=== PATIENT | female | born 1955 | race Caucasian/White ===

== ENCOUNTER → 2017-11-28 | Outpatient (CLI) | payer OTHER ==
[~2017-11-28] MED LIST: ATORVASTATIN CA40 MG PO; CALCIUM + D SO1 EACH; CEPHALEXIN 500500 M3 PO; CORTISPORIN OTI10 M2 OTIC; DUONEB 2.5-0.5 M3 ML INH; ERYTHROMYCIN E3.5 G3 OPHTHALMIC; FLEXERIL PO; LIPITOR40 MG; MULTIVITAMINS1 EAC7; NEBULIZER MISCELL; NORCO 5-325 TA1 EACH PO; PAXIL20 MG PO; PAXIL40 MG; PREDNISONE50 MG PO; PROAIR HFA8.5 GM INH; TRICOR145 MG; ZPAK PO
[2017-11-28 09:57] LABS: ABSOLUTE BASOPHILS 0.1 thou/uL (0.0-0.2); ABSOLUTE EOSINOPHILS 0.1 thou/uL (0.0-0.7); ABSOLUTE LYMPHOCYTES 2.8 thou/uL (0.8-5.3); ABSOLUTE MONOCYTES 0.5 thou/uL (0.0-1.2); BASOPHILS 0.9 %; EOSINOPHILS 1.6 %; HEMOGLOBIN 13.8 gm/dL (12.0-15.0); LYMPHOCYTES 37.4 %; MCH 29.5 pg (26.0-34.0); MCHC 32.9 g/dL (28.0-37.0); MCV 89.7 fL (80.0-100.0); MONOCYTES 7.3 %; MPV 7.7 fl. (7.2-11.1); NUCLEATED RBCS 0 /100WBC; PLATELET COUNT* 522 thou/uL (150-400); POLYS 52.8 %; RBC 4.68 mil/uL (4.20-5.00); RDW-CV 13.3 % (10.5-14.5); WBC 7.5 thou/uL (4.0-11.0)
[2017-11-28 10:34] LABS: ALBUMIN 3.7 g/dL (3.4-5.0); ALKALINE PHOSPHATASE 138 U/L (46-116); ANION GAP 11 mmol/L (7-16); BUN 28 mg/dL (7-18); CALCIUM 9.7 mg/dL (8.5-10.1); CHLORIDE 105 mmol/L (98-107); CHOLESTEROL 154 mg/dL (<200); CO2 28 mmol/L (21-32); CREATININE 0.6 mg/dL (0.6-1.3); GLUCOSE 108 mg/dL (70-99); HDL CHOLESTEROL 35 mg/dL (>40); LDL CHOLESTEROL 101 mg/dL (<100); POTASSIUM 3.7 mmol/L (3.5-5.1); SERUM ASSESSMENT Clear; SGOT 24 U/L (15-37); SGPT 24 U/L (30-65); SODIUM 144 mmol/L (136-145); TC:HDL 4.4 Ratio (Not establshd); TOTAL BILIRUBIN 0.2 mg/dL (<0.1-1.0); TOTAL PROTEIN 7.9 g/dL (6.4-8.2); TRIGLYCERIDE 93 mg/dL (<150); VLDL 19 mg/dL (<40)
== END ==
LOC: M.LAB 09:16
PROVIDERS: Family Medicine
DX: E78.5 Hyperlipidemia, unspecified (principal)

== ENCOUNTER 2019-05-02 23:49 | Emergency (ER) | payer OTHER ==
[~2019-05-02] VITALS: Ht 154.9 cm; Wt 49.9 kg
[2019-05-03 00:17] LABS: ABSOLUTE BASOPHILS 0.1 thou/uL (0.0-0.2); ABSOLUTE EOSINOPHILS 0.3 thou/uL (0.0-0.7); ABSOLUTE MONOCYTES 0.7 thou/uL (0.0-1.2); ABSOLUTE NEUTROPHILS 7.4 thou/uL (1.6-8.1); BASOPHILS 0.9 %; EOSINOPHILS 2.3 %; HEMATOCRIT 41.1 % (37.0-47.0); HEMOGLOBIN 13.2 gm/dL (12.0-15.0); LYMPHOCYTES 26.2 %; MCH 29.7 pg (26.0-34.0); MCHC 32.2 g/dL (28.0-37.0); MCV 92.3 fL (80.0-100.0); MPV 8.5 fl. (7.2-11.1); NUCLEATED RBCS 0 /100WBC; PLATELET COUNT* 343 thou/uL (150-400); POLYS 64.6 %; RBC 4.46 mil/uL (4.20-5.00); RDW-CV 13.4 % (10.5-14.5); WBC 11.4 thou/uL (4.0-11.0)
[2019-05-03 00:28] LABS: ANION GAP 10 mmol/L (7-16); BUN 27 mg/dL (7-18); CALCIUM 9.2 mg/dL (8.5-10.1); CHLORIDE 110 mmol/L (98-107); CO2 26 mmol/L (21-32); CREATININE 0.8 mg/dL (0.6-1.3); GLUCOSE 138 mg/dL (70-99); POTASSIUM 3.4 mmol/L (3.5-5.1); SODIUM 146 mmol/L (136-145)
[2019-05-03 00:37] LABS: ALBUMIN 3.9 g/dL (3.4-5.0); ALKALINE PHOSPHATASE 125 U/L (46-116); LIPASE 108 U/L (73-393); SGOT 14 U/L (15-37); SGPT 19 U/L (30-65); TOTAL BILIRUBIN 0.2 mg/dL (<0.1-1.0); TOTAL PROTEIN 7.1 g/dL (6.4-8.2); TROPONIN-I LEVEL <0.06 ng/mL (<0.06)
[2019-05-03] MEDS ORDERED: ZOFRAN ODT4 MG SUBLING (00:49)
[2019-05-03 01:00] VITALS: BP 107/42
--- NOTE | 2019-05-04 14:51 | EKG ---
[place] [address] ELECTROCARDIOGRAM REPORT Name: LUIS CARVALHO Room: [facility]#: [id number] Admission: 05/02/19 Attend Phys: Discharge: 05/03/19 Date of : 59 Report #: [id number] THIS REPORT FOR: //name// [facility] ED Test Date: 2019-05-03 Test Time: 00:31:38 Pat Name: LUIS CARVALHO Department: Room: Gender: F [employer]inder: SHEILA : 1955 Requested By: Negro Beth Order Number: [id number] MD: Wan Ospina Measurements Intervals [place] Rate: 52 P: 78 [place]: 132 QRS: 61 QRSD: 105 T: 40 QT: 479 QTc: 446 Interpretive Statements Sinus rhythm Borderline low voltage, extremity leads Compared to ECG 07/26/2017 22:50:07 No significant changes Electronically Signed On 05-04-2019 14:51:28 CDT by Wan Ospina [email or web address] <ELECTRONICALLY SIGNED> By: Wan Ospina MD, [facility] 05/04/19 1451 Wan Ospina MD, FACC /EPI
== END 2019-05-03 01:37 | disposition home or self-care (01) ==
LOC: M.ERS 23:49
PROVIDERS: Family Medicine
DX: R19.7 Diarrhea, unspecified (principal); F17.210 Nicotine dependence, cigarettes, uncomplicated; F32.9 Major depressive disorder, single episode, unspecified; E78.00 Pure hypercholesterolemia, unspecified; Z88.0 Allergy status to penicillin; Z90.710 Acquired absence of both cervix and uterus; Z87.442 Personal history of urinary calculi